=== PATIENT | female | born 1965 | race Asian ===

== ENCOUNTER 2018-08-24 18:27 | Emergency (ER) | payer BC, OTHER ==
[2018-08-24 18:37] VITALS: BP 154/90; PULSE 88; TEMP 97.7; BMI 25.7
--- NOTE | 2018-08-24 19:43 | PDOC ---
Documentation entered by Darcie Hall SCRIBE, acting as scribe for Guero Kunz MD. Guero Kunz MD: This documentation has been prepared by the alinaibe, Darcie Hall SCRIBE, under my direction and personally reviewed by me in its entirety. I confirm that the documentation accurately reflects all work, treatment, procedures, and medical decision making performed by me. History of Present Illness - General Chief Complaint: Rash Stated Complaint: RASH ALL OVER ITCHY FOR 1 WEEK History Source: Patient Exam Limitations: No Limitations - History of Present Illness Initial Comments: 08/24/18 18:53 The patient is a 52 year old female with no significant past medical history who presents to the emergency department with body rashes for 1 week. The patient reports that she was at home when she noted rashes throughout her body that began on her belly and has been sperading to her extremities. she reports some associated painful itching with her rashes. She denies eating anything out of the norm, she denies any known food allergies, recent travel. She states that this has happened in the past but does not recall the trigger. the patient reports using topical cream and benadry with no apparent relief of her symptoms. The patient denies any other complaints. 0no associated fevers, or intraoral lesions deneis any cough, sore throat, sob, cp, abd pain, n/v. Past History - Past Medical History Allergies/Adverse Reactions: Allergies Allergy/AdvReac Type Severity Reaction Status Date / Time No Known Allergies Allergy Unverified 08/24/18 18:45 Home Medications: Ambulatory Orders Valacyclovir HCl [Valtrex] 1,000 mg PO TID #21 tablet 08/24/18 COPD: No Other medical history: DENIES - Suicide/Smoking/Psychosocial Hx Smoking History: Never smoked Information on smoking cessation initiated: No Review of Systems - Review of Systems Able to Perform ROS?: Yes Comments:: 08/24/18 19:33 Constitutional - no reported Fever, Chills, HEENT: no reported vision changes, sore throat Respiratory: no reported cough, sob, hemoptysis Cardiac: no reported chest pain, palpitations, light headedness, leg swelling Abd/GI: no reported abd pain, nausea, vomiting, blood per rectum, melena, diarrhea : no reported dysuria, frequency, discharge Musculskelatal - no reported back pain, joint swelling skin - +itchy rash no reported bruising, erythema neurological: no reported headache, numbness, focal weakness, tingling, ataxia, hematologic: no reported easy bruising, easy bleeding *Physical Exam - Vital Signs Last Vital Signs Temp Pulse Resp BP Pulse Ox 97.7 F 88 16 154/90 100 08/24/18 18:28 08/24/18 18:28 08/24/18 18:28 08/24/18 18:28 08/24/18 18:28 - Physical Exam Comments: 08/24/18 19:26 GENERAL: The patient is awake, alert, and fully oriented, Nontoxic - in no acute distress. HEAD: Normocephalic, atraumatic. EYES: extraocular movements intact, sclera anicteric, conjunctiva clear. ENT: Normal voice, Moist mucous membranes, no intraoral lesions NECK: Normal range of motion, supple LUNGS: Breath sounds equal, clear to auscultation bilaterally. No wheezes, no rhonchi, no rales. HEART: Regular rate and rhythm, normal S1 and S2 without murmur, rub or gallop. ABDOMEN: Soft, nontender, normoactive bowel sounds. No guarding, no rebound. . No CVA tenderness EXTREMITIES: Normal range of motion, no edema. No clubbing or cyanosis. No cords, erythema, or tenderness. NEUROLOGICAL: No facial assymetry, Normal speech, PSYCH: Normal mood, normal affect. SKIN: multiple vesicular lesions on red base throughout body, some areas of excoriations *DC/Admit/Observation/Transfer Diagnosis at time of Disposition: Varicella Qualifiers: Varicella complications: without complication Qualified Code(s): B01.9 - Varicella without complication - Discharge Dispostion Disposition: HOME Condition at time of disposition: Stable Decision to Admit order: No - Prescriptions Prescriptions: Valacyclovir HCl [Valtrex] 1,000 mg PO TID #21 tablet - Referrals - Patient Instructions Printed Discharge Instructions: DI for Chickenpox-Adult Additional Instructions: I suspect your symptoms may be due to chicken pox Take the medications as prescribed. Take benadryl as prescribed Stay away from any babies, unvaccinated people or people. Follow up with your primary care doctor as prescribed Print Language: CZECH - Post Discharge Activity
== END 2018-08-24 19:30 | disposition home or self-care (01) ==
LOC: FER 18:27
DX: B01.9 Varicella without complication (principal)
CPT/HCPCS: 99281-25

== ENCOUNTER 2018-09-05 01:28 | Emergency (ER) | payer OTHER ==
[2018-09-05 01:34] VITALS: BP 136/94; PULSE 74; TEMP 97.3; BMI 24.9
[2018-09-05] MEDS ORDERED: diphenhydrAMINE HCL 50 MG CAPSULE PO ONE (01:43)
[2018-09-05] MEDS ORDERED: predniSONE 20 MG TABLET (UD) PO ONE (01:43)
[2018-09-05] MEDS ORDERED: diphenhydrAMINE HCL 50 MG CAPSULE ONE (01:45)
[2018-09-05] MEDS ORDERED: predniSONE 20 MG TABLET (UD) ONE (01:45)
--- NOTE | 2018-09-05 01:56 | PDOC ---
History of Present Illness - General Chief Complaint: Rash Stated Complaint: RASH/ITCHING Time Seen by Provider: 09/05/18 01:31 History Source: Patient Exam Limitations: No Limitations - History of Present Illness Initial Comments: 09/05/18 01:46 52 yo F no pmhx here with c/o generalized rash and itching. started 2 weeks ago. initially as a patch on her stomach, then spread to trunk back and arm.s very little on leg. no new medication or lotions. no new diet changes. has been taking allergy medication such as zyrtec and over the counter hydrocortisone. no lip or tongue swelling. no one else in home with same rash. no f/c . using calamine, little relief Past History - Past Medical History Allergies/Adverse Reactions: Allergies Allergy/AdvReac Type Severity Reaction Status Date / Time No Known Allergies Allergy Unverified 08/24/18 18:45 Home Medications: Ambulatory Orders Triamcinolone 0.1% Cream [Aristocort 0.1% Cream -] 1 applic TP BID #90 gm predniSONE [Deltasone -] 40 mg PO DAILY #7 tablet 09/05/18 COPD: No - Suicide/Smoking/Psychosocial Hx Smoking History: Never smoked Review of Systems - Review of Systems Constitutional: No: Chills, Diaphoresis, Fever HEENTM: No: Eye Pain Respiratory: No: Cough, Orthopnea Cardiac (ROS): No: Chest Pain, Edema Integumentary: Yes: Rash Neurological: No: Headache, Numbness Psychiatric: No: Stressors All Other Systems: Reviewed and Negative *Physical Exam - Vital Signs Last Vital Signs Temp Pulse Resp BP Pulse Ox 97.3 F L 74 16 136/94 99 09/05/18 01:31 09/05/18 01:31 09/05/18 01:31 09/05/18 01:31 09/05/18 01:31 - Physical Exam Comments: 09/05/18 01:47 awake alert lungs ctab heart rrr no mrg ext wwp. skin wtih diffuse maculopapular rash concentrated over trunk and abd. some circular patches as well. limited on legs. no tongue orlip swelling. *DC/Admit/Observation/Transfer Diagnosis at time of Disposition: Pityriasis rosea-like skin eruption - Discharge Dispostion Disposition: HOME Condition at time of disposition: Stable Decision to Admit order: No - Prescriptions Prescriptions: predniSONE [Deltasone -] 40 mg PO DAILY #7 tablet Triamcinolone 0.1% Cream [Aristocort 0.1% Cream -] 1 applic TP BID #90 gm - Referrals Referrals: Eduardo Coleman MD [Primary Care Provider] - Paula Garzon MD [Staff Physician] - - Patient Instructions Printed Discharge Instructions: Pityriasis Rosea Additional Instructions: you can take prednisone 40 mg daily starting tomorrow 09/05/18. follow up with a rubber molder. see referral information for Dr Garzon. call to schedule. return for fever, tongue or lip swelling or any concerns. you can take benadryl 25 mg every 6 hrs as needed for itching. avoid scented soaps and lotion. - Post Discharge Activity
== END 2018-09-05 02:03 | disposition home or self-care (01) ==
LOC: FER 01:28
DX: L42 Pityriasis rosea (principal)
CPT/HCPCS: 99281-25